=== PATIENT | male | born 1955 | race Caucasian/White ===

== ENCOUNTER 2019-08-18 07:57 | Day surgery (SDC) | payer OTHER ==
[~2019-08-18] VITALS: Ht 185.4 cm; Wt 115.0 kg
[~2019-08-18 07:57] MED LIST: AMLO-150 PO; ATOR40TA78 PO
[2019-08-18] MEDS ORDERED: LACTATED RINGERS 1,000 ML IV SCH (08:42)
[2019-08-18 08:59] VITALS: BP 169/99
[2019-08-18] MEDS ORDERED: ACETAMINOPHEN 500 MG TABLET PO ONE (09:00)
[2019-08-18] MEDS ORDERED: LIDOCAINE/PF 1%-EPI 1:200K, 30 ML ONE (09:11)
[2019-08-18] MEDS ORDERED: morphine SULFATE/PF 1 MG/ML, 10ML ONE (09:17)
[2019-08-18] MEDS ORDERED: MIDAZOLAM 1 MG/ML, 2ML ONE (09:33)
[2019-08-18] MEDS ORDERED: FENTANYL PF 250 MCG/5ML ONE (09:35)
[2019-08-18] MEDS ORDERED: PROPOFOL 10 MG/ML, 20ML ONE (09:35)
[2019-08-18] MEDS ORDERED: SUCCINYLCHOLINE 20 MG/ML, 10ML ONE (09:37)
[2019-08-18] MEDS ORDERED: BUPIVACAINE/PF-EPI 0.25% 1:200K ONE (09:38)
[2019-08-18] MEDS ORDERED: LIDOCAINE 1%, 20ML ONE (09:38)
[2019-08-18] MEDS ORDERED: CEFAZOLIN 1,000 MG ONE ×3 (09:47→10:27)
[2019-08-18] MEDS ORDERED: DEXAMETHASONE 4 MG/ML, 1ML ONE ×2 (09:47→10:27)
[2019-08-18] MEDS ORDERED: HYDROmorphone 2 MG/ML, 1ML IVPush PRN (10:00)
[2019-08-18] MEDS ORDERED: FENTANYL PF 100 MCG/2ML IV PRN (10:00)
[2019-08-18] MEDS ORDERED: MIDAZOLAM 1 MG/ML, 2ML IV PRN (10:00)
[2019-08-18] MEDS ORDERED: HALOPERIDOL 5 MG/ML IV PRN (10:00)
[2019-08-18] MEDS ORDERED: LABETALOL 5MG/ML, 20ML IV PRN (10:00)
[2019-08-18] MEDS ORDERED: MEPERIDINE/PF 25MG/ML,1ML IVPush PRN (10:00)
[2019-08-18] MEDS ORDERED: ONDANSETRON ODT 8 MG PO PRN (10:00)
[2019-08-18] MEDS ORDERED: EPHEDRINE 50 MG/ML, 1ML IVPush PRN (10:00)
[2019-08-18] MEDS ORDERED: hydrALAzine 20 MG/ML, 1ML IV PRN (10:00)
[2019-08-18] MEDS ORDERED: PROMETHAZINE 12.5 MG SUPP PR PRN (10:00)
[2019-08-18] MEDS ORDERED: ONDANSETRON 2MG/ML, 2ML IV PRN (10:00)
[2019-08-18] MEDS ORDERED: OXYcodone 5 MG/5 ML ORAL.SOL UDC PO PRN (10:00)
[2019-08-18] MEDS ORDERED: ALBUTEROL SULFATE 2.5 MG/3 ML NPPB PRN (10:00)
[2019-08-18] MEDS ORDERED: PROMETHAZINE 25 MG/ML, 1ML IV PRN (10:00)
[2019-08-18] MEDS ORDERED: DIAZEPAM 5 MG/ML, 2ML IVPush PRN (10:00)
[2019-08-18] MEDS ORDERED: KETOROLAC 30 MG/1 ML ONE (10:27)
[2019-08-18] MEDS ORDERED: ONDANSETRON 2MG/ML, 2ML ONE ×2 (10:27)
== END 2019-08-18 12:10 | disposition home or self-care (01) ==
LOC: OUT 07:57
PROVIDERS: ATTEND Orthopaedic Surgery
DX: S83.231A Complex tear of medial meniscus, current injury, right knee, initial encounter (principal); M67.261 Synovial hypertrophy, not elsewhere classified, right lower leg; I10 Essential (primary) hypertension; F15.90 Other stimulant use, unspecified, uncomplicated; Z87.891 Personal history of nicotine dependence; Z72.89 Other problems related to lifestyle; X58.XXXA Exposure to other specified factors, initial encounter; Y93.89 Activity, other specified; Y92.89 Other specified places as the place of occurrence of the external cause; Y99.8 Other external cause status
CPT/HCPCS: 29876; 29881; 93005; J0330; J0690; J1100; J1885; J2250; J2274; J2405; J2704; J3010; J7120; J3490